=== PATIENT | female | born 1950 | race Hispanic/Latino ===

== ENCOUNTER 2023-01-04 16:42 | Inpatient (IN) | payer MEDICARE ==
[~2023-01-04] VITALS: Ht 165.1 cm; Wt 70.3 kg
[2023-01-04] MEDS ORDERED: Morphine 4mg INJECTION 4 MG/ML INJ IV PRN ×2 (17:30→19:30)
[2023-01-04] MEDS ORDERED: SODIUM CHLORIDE 0.9% 1000ML 1,000 ML IV ONE (17:30)
[2023-01-04] MEDS ORDERED: ONDANSETRON HCL INJ 2MG/ML 2ML 2 MG/ML VIAL IV PRN ×2 (17:30→19:30)
[2023-01-04 17:34] LABS: BASOPHILS % 0.4 % (0.0-1.0); EOSINOPHILS # (AUTO) 0.3 (0.0-0.4); EOSINOPHILS % 3.5 % (0.0-6.0); HEMATOCRIT 38.4 % (34.2-44.1); LYMPHOCYTES # (AUTO) 2.3 (1.0-3.2); LYMPHOCYTES % 30.6 % (18.0-39.1); MEAN CORPUSCULAR HGB CONC 33.9 g/dL (31-35); MEAN CORPUSCULAR VOLUME 91.6 fL (81-99); MONOCYTES # (AUTO) 0.9 (0.2-0.8); MONOCYTES % 11.8 % (4.4-11.3); NEUTROPHILS % 53.3 % (38.7-80.0); PLATELET COUNT 248 x10e3/uL (140-360); RED BLOOD COUNT 4.19 x10e6/uL (3.6-5.1); RED CELL DISTRIBUTION WIDTH 12.2 % (11.7-14.4)
[2023-01-04 17:46] LABS: ALANINE AMINOTRANSFERASE 72 IU/L (0-55); ALBUMIN 3.5 g/dL (3.5-5.0); ALBUMIN/GLOBULIN RATIO 0.6 (0.8-2.0); ALKALINE PHOSPHATASE 229 IU/L (40-150); ANION GAP 14.8 mmol/L (8-16); BLOOD UREA NITROGEN 19 mg/dL (7-26); BUN/CREATININE RATIO 18 (6-25); CALCIUM 9.6 mg/dL (8.4-10.2); CARBON DIOXIDE 24 mmol/L (22-29); CHLORIDE 101 mmol/L (98-107); CREATININE, SERUM 1.08 mg/dL (0.57-1.11); GLUCOSE 97 mg/dL (74-118); LIPASE 279 U/L (8-78); POTASSIUM 3.8 mmol/L (3.5-5.1); SODIUM 136 mmol/L (136-145)
[2023-01-04 18:04] LABS: CLARITY,URINE SL CLOUDY (CLEAR); COLOR,URINE YELLOW (YELLOW); KETONES,URINE NEGATIVE (NEGATIVE); LEUKOCYTE ESTERASE ,URINE 1+ (NEGATIVE); NITRITE,URINE NEGATIVE (NEGATIVE); PROTEIN,URINE DIPSTICK 1+ (NEGATIVE); URINE UROBILINOGEN 0.2 mg/dL (0.2 - 1)
[2023-01-04] MEDS ORDERED: IOPAMIDOL 370 MG/ML 100 ML INFUS..BTL INJ ONE (18:15)
[2023-01-04 18:24] LABS: BACTERIA,URINE MANY /HPF; EPITHELIAL CELLS,URINE FEW /LPF; TRANSITIONAL EPI CELLS,URINE MODERATE
[2023-01-04] MEDS ORDERED: METHYLPREDNISOLONE SOD SUCC 125 MG/2ML VIAL IV ONE (19:30)
[2023-01-04] MEDS: SODIUM CHLORIDE 0.9% 1000ML 1,000 ML IV SCH ×2 (19:42→22:24)
[2023-01-04 20:30] VITALS: BP 175/89; PULSE 63; RESP 18; TEMP 97.9; O2SAT 98
[2023-01-04] MEDS ORDERED: ZESTRIL2.5 MG PO (22:48)
[2023-01-04] MEDS ORDERED: ULTRAM 50MG50 MG PO (22:48)
[2023-01-04] MEDS ORDERED: BYSTOLIC10 MG PO (22:48)
[2023-01-04] MEDS ORDERED: ACETAMINOPHEN 325 MG TAB PO PRN (23:00)
[2023-01-04] MEDS ORDERED: POLYETHYLENE GLYCOL 3350 17 GM PACK PO PRN (23:00)
[2023-01-04] MEDS ORDERED: NALOXONE HCL INJ 0.4 MG/ML AMP IV PRN (23:00)
[2023-01-04] MEDS ORDERED: LACTATED RINGER'S 1,000 ML INJ ONE (23:15)
[2023-01-04 23:53] VITALS: BP 156/84; PULSE 71; RESP 16; TEMP 98.2; O2SAT 99
[2023-01-05] VITALS (9 sets, daily range): BP systolic 136–168; BP diastolic 82–102; PULSE 52–81; RESP 14–19; TEMP 97.4–99.3; O2SAT 95–100
[2023-01-05] MEDS: TRAMADOL HCL 50 MG TAB PO PRN (00:21)
[2023-01-05] MEDS: FAMOTIDINE 20 MG/2 ML VIAL IV SCH ×2 (00:21→17:20)
[2023-01-05 07:18] LABS: BASOPHILS % 0.2 % (0.0-1.0); HEMATOCRIT 39.5 % (34.2-44.1); HEMOGLOBIN 13.5 g/dL (12.0-16.0); LYMPHOCYTES # (AUTO) 1.3 (1.0-3.2); MEAN CORPUSCULAR HGB CONC 34.2 g/dL (31-35); MEAN CORPUSCULAR VOLUME 90.8 fL (81-99); MONOCYTES # (AUTO) 0.1 (0.2-0.8); MONOCYTES % 1.1 % (4.4-11.3); NEUTROPHILS # (AUTO) 3.2 (2.1-6.9); NEUTROPHILS % 70.5 % (38.7-80.0); PLATELET COUNT 251 x10e3/uL (140-360); RED BLOOD COUNT 4.35 x10e6/uL (3.6-5.1); RED CELL DISTRIBUTION WIDTH 11.9 % (11.7-14.4)
[2023-01-05 07:35] LABS: CALCIUM 9.2 mg/dL (8.4-10.2); CREATININE, SERUM 0.85 mg/dL (0.57-1.11)
[2023-01-05 08:25] LABS: CHOL/HDL RATIO 8.6 (3.0-3.6); MAGNESIUM 1.9 MG/DL (1.3-2.1)
[2023-01-05 08:45] LABS: THYROID STIMULATING HORMONE 0.97 uIU/mL (0.350-4.940)
[2023-01-05] MEDS: NEBIVOLOL 10 MG TAB PO SCH (09:41)
[2023-01-05] MEDS: DOCUSATE SODIUM 100 MG CAP PO SCH ×2 (09:41→17:20)
[2023-01-05] MEDS: LISINOPRIL 2.5 MG TAB PO SCH (09:42)
[2023-01-05] MEDS ORDERED: HYDROCODONE/APAP 5MG-325MG TAB PO PRN (21:00)
[2023-01-05] MEDS: HYDROMORPHONE 1MG/1ML INJ IV PRN (22:06)
[2023-01-05] MEDS: HYDRALAZINE HCL 20 MG/ML VIAL IV PRN (22:09)
[2023-01-06] VITALS (10 sets, daily range): BP systolic 145–176; BP diastolic 69–93; PULSE 50–73; RESP 17–20; TEMP 97.5–98.4; O2SAT 97–100
[2023-01-06] MEDS: DOCUSATE SODIUM 100 MG CAP PO SCH ×2 (09:00→17:12)
[2023-01-06] MEDS: LISINOPRIL 2.5 MG TAB PO SCH (09:28)
[2023-01-06] MEDS: NEBIVOLOL 10 MG TAB PO SCH (09:33)
[2023-01-06] MEDS: HYDROMORPHONE 1MG/1ML INJ IV PRN ×2 (14:01→20:07)
[2023-01-06] MEDS: HYDRALAZINE HCL 20 MG/ML VIAL IV PRN (17:16)
[2023-01-07] VITALS (8 sets, daily range): BP systolic 145–161; BP diastolic 74–99; PULSE 55–88; RESP 17–19; TEMP 97.8–98.8; O2SAT 96–100
[2023-01-07] MEDS: TRAMADOL HCL 50 MG TAB PO PRN (00:55)
[2023-01-07 06:26] LABS: INR 1.13; PARTIAL THROMBOPLASTIN TIME 30.5 seconds (23.8-35.5)
[2023-01-07 07:23] LABS: BASOPHILS % 0.2 % (0.0-1.0); EOSINOPHILS # (AUTO) 0.2 (0.0-0.4); EOSINOPHILS % 1.9 % (0.0-6.0); HEMATOCRIT 38.1 % (34.2-44.1); LYMPHOCYTES # (AUTO) 1.9 (1.0-3.2); LYMPHOCYTES % 20.8 % (18.0-39.1); MEAN CORPUSCULAR HGB CONC 34.1 g/dL (31-35); MEAN CORPUSCULAR VOLUME 90.7 fL (81-99); MONOCYTES # (AUTO) 0.8 (0.2-0.8); MONOCYTES % 9.3 % (4.4-11.3); NEUTROPHILS % 67.4 % (38.7-80.0); PLATELET COUNT 251 x10e3/uL (140-360); RED CELL DISTRIBUTION WIDTH 12.2 % (11.7-14.4)
[2023-01-07 07:35] LABS: ANION GAP 13.5 mmol/L (8-16); CALCIUM 8.9 mg/dL (8.4-10.2); CREATININE, SERUM 0.89 mg/dL (0.57-1.11); POTASSIUM 3.5 mmol/L (3.5-5.1)
[2023-01-07] MEDS: NEBIVOLOL 10 MG TAB PO SCH (08:26)
[2023-01-07] MEDS: LISINOPRIL 2.5 MG TAB PO SCH (08:27)
[2023-01-07] MEDS: DOCUSATE SODIUM 100 MG CAP PO SCH ×2 (08:27→17:25)
[2023-01-07] MEDS ORDERED: SODIUM CHLORIDE 0.9% 250ML 250 ML ONE (09:58)
[2023-01-07] MEDS ORDERED: MIDAZOLAM HCL 2 MG/2 ML VIAL ONE (09:58)
[2023-01-07] MEDS ORDERED: FENTANYL CITRATE/PF 100MCG/2 ML INJ ONE (09:58)
[2023-01-07] MEDS ORDERED: LIDOCAINE HCL 1% LOCAL INJ 20 ML VIAL ONE (10:14)
[2023-01-07] MEDS: HYDROMORPHONE 1MG/1ML INJ IV PRN (13:10)
[2023-01-08] VITALS: BP 141/94; PULSE 107; RESP 18; TEMP 98.3; O2SAT 95
[2023-01-08] MEDS: TRAMADOL HCL 50 MG TAB PO PRN ×2 (00:12→06:18)
[2023-01-08 04:00] VITALS: BP 142/88; PULSE 65; RESP 17; TEMP 97.8; O2SAT 96
[2023-01-08 06:58] VITALS: PULSE 68; RESP 17; O2SAT 97
[2023-01-08 07:14] LABS: BASOPHILS # (AUTO) 0.1 (0.0-0.1); BASOPHILS % 0.7 % (0.0-1.0); EOSINOPHILS # (AUTO) 0.2 (0.0-0.4); EOSINOPHILS % 3.5 % (0.0-6.0); HEMATOCRIT 40.7 % (34.2-44.1); HEMOGLOBIN 13.1 g/dL (12.0-16.0); LYMPHOCYTES # (AUTO) 1.5 (1.0-3.2); LYMPHOCYTES % 21.7 % (18.0-39.1); MEAN CORPUSCULAR HEMOGLOBIN 31.5 pg (28-32); MEAN CORPUSCULAR HGB CONC 32.2 g/dL (31-35); MEAN CORPUSCULAR VOLUME 97.8 fL (81-99); MONOCYTES # (AUTO) 0.7 (0.2-0.8); MONOCYTES % 10.4 % (4.4-11.3); NEUTROPHILS # (AUTO) 4.3 (2.1-6.9); NEUTROPHILS % 63.4 % (38.7-80.0); PLATELET COUNT 209 x10e3/uL (140-360); RED BLOOD COUNT 4.16 x10e6/uL (3.6-5.1); RED CELL DISTRIBUTION WIDTH 12.6 % (11.7-14.4)
[2023-01-08 07:18] LABS: ANION GAP 11.4 mmol/L (8-16); CALCIUM 8.9 mg/dL (8.4-10.2); CREATININE, SERUM 1.08 mg/dL (0.57-1.11); POTASSIUM 3.4 mmol/L (3.5-5.1)
[2023-01-08 08:00] VITALS: BP 139/92; PULSE 70; RESP 18; TEMP 98.6; O2SAT 98
[2023-01-08] MEDS: LISINOPRIL 2.5 MG TAB PO SCH (08:33)
[2023-01-08] MEDS: DOCUSATE SODIUM 100 MG CAP PO SCH (08:33)
[2023-01-08] MEDS: NEBIVOLOL 10 MG TAB PO SCH (08:34)
[2023-01-08 09:00] VITALS: BP 142/88; PULSE 70; RESP 18; TEMP 98.6; O2SAT 98
[2023-01-08] MEDS ORDERED: ACETAMINOPHEN325 M1 PO (11:31)
[2023-01-08] MEDS ORDERED: ONDANSETRON ODT4 MG PO (11:31)
[2023-01-08] MEDS ORDERED: Docusate Sodium PO (11:31)
[2023-01-08 12:00] VITALS: BP 136/86; PULSE 67; RESP 17; TEMP 97.8; O2SAT 98
[2023-01-08] MEDS ORDERED: ONDANSETRON HCL 4 MG ORAL DISINTEGRATING TAB PO PRN (12:15)
[2023-01-08] MEDS ORDERED: POTASSIUM CHLORIDE 20 MEQ TAB CR PO ONE (12:40)
[2023-01-08] MEDS ORDERED: PANTOPRAZOLE SOD 40 MG TABEC PO SCH (21:00)
[2023-01-14 12:00] VITALS: PULSE 72; RESP 17; O2SAT 98
== END 2023-01-08 12:50 | disposition home or self-care (01) | DRG 825 ==
LOC: ER 16:47 → ERHOLD 19:21 → MED/SURG3 20:36
PROVIDERS: ADMIT Internal Medicine; ATTEND Internal Medicine
PROC: 07BC3ZX Excision of Pelvis Lymphatic, Percutaneous Approach, Diagnostic (ICD-10-PCS; principal; 2023-01-07)
DX: C77.2 Secondary and unspecified malignant neoplasm of intra-abdominal lymph nodes (principal); C80.1 Malignant (primary) neoplasm, unspecified; D37.8 Neoplasm of uncertain behavior of other specified digestive organs; K80.20 Calculus of gallbladder without cholecystitis without obstruction; K57.30 Diverticulosis of large intestine without perforation or abscess without bleeding; I10 Essential (primary) hypertension; E87.6 Hypokalemia; E86.0 Dehydration
CPT/HCPCS: 0223U; 36415; 38505; 74177; 74470; 77012; 80048; 80053; 80061; 81001; 82378; 83036; 83690; 83735; 84100; 84443; 84484; 85025; 85610; 85730; 86301; 87086; 88304; 88305; 88333; 88342; 93005; 94799; 99152; 99153; 99284; J0696; J1170; J2001; J2250; J2270; J2405; J2930; J7030; J7050; Q9967

== ENCOUNTER 2023-02-22 14:38 | Inpatient (IN) | payer OTHER, MEDICARE ==
[~2023-02-22] VITALS: Ht 154.9 cm; Wt 75.0 kg
[2023-02-22] VITALS (11 sets, daily range): BP systolic 107–124; BP diastolic 61–80; PULSE 74–94; RESP 16–19; TEMP 98–98.7; O2SAT 95–99
[~2023-02-22 14:38] MED LIST: ACETAMINOPHEN325 M1 PO; BYSTOLIC10 MG PO; Docusate Sodium PO; ONDANSETRON ODT4 MG PO; ULTRAM 50MG50 MG PO; ZESTRIL2.5 MG PO
[2023-02-22] MEDS ORDERED: SODIUM CHLORIDE 0.9% 1000ML 1,000 ML IV STA ×2 (14:59→15:43)
[2023-02-22 15:18] LABS: BASOPHILS % 0.1 % (0.0-1.0); EOSINOPHILS # (AUTO) 0.1 (0.0-0.4); EOSINOPHILS % 0.3 % (0.0-6.0); HEMATOCRIT 30.3 % (34.2-44.1); HEMOGLOBIN 10.9 g/dL (12.0-16.0); LYMPHOCYTES # (AUTO) 0.6 (1.0-3.2); LYMPHOCYTES % 2.6 % (18.0-39.1); MEAN CORPUSCULAR HEMOGLOBIN 30.8 pg (28-32); MEAN CORPUSCULAR VOLUME 85.6 fL (81-99); MONOCYTES # (AUTO) 0.8 (0.2-0.8); MONOCYTES % 3.7 % (4.4-11.3); NEUTROPHILS # (AUTO) 19.6 (2.1-6.9); NEUTROPHILS % 92.1 % (38.7-80.0); PLATELET COUNT 392 x10e3/uL (140-360); RED BLOOD COUNT 3.54 x10e6/uL (3.6-5.1); RED CELL DISTRIBUTION WIDTH 18.3 % (11.7-14.4)
[2023-02-22 15:23] LABS: INR 1.59; PROTHROMBIN TIME 19.5 seconds (11.9-14.5)
[2023-02-22 15:24] LABS: PARTIAL THROMBOPLASTIN TIME 36.2 seconds (23.8-35.5)
[2023-02-22 15:35] LABS: ALANINE AMINOTRANSFERASE 103 IU/L (0-55); ALBUMIN 1.9 g/dL (3.5-5.0); ALBUMIN/GLOBULIN RATIO 0.3 (0.8-2.0); ALKALINE PHOSPHATASE 976 IU/L (40-150); ANION GAP 20.3 mmol/L (8-16); BLOOD UREA NITROGEN 27 mg/dL (7-26); BUN/CREATININE RATIO 16 (6-25); CALCIUM 8.8 mg/dL (8.4-10.2); CARBON DIOXIDE 27 mmol/L (22-29); CHLORIDE 82 mmol/L (98-107); CREATINE KINASE 96 IU/L (29-168); CREATININE, SERUM 1.68 mg/dL (0.57-1.11); GLUCOSE 113 mg/dL (74-118); LIPASE 33 U/L (8-78); MAGNESIUM 1.7 MG/DL (1.3-2.1); POTASSIUM 3.3 mmol/L (3.5-5.1); SODIUM 126 mmol/L (136-145)
[2023-02-22 15:42] LABS: B-TYPE NATRIURETIC PEPTIDE2 116.6 pg/mL (0-100)
[2023-02-22 16:42] LABS: BAND NEUTROPHILS % (MANUAL) 5 %; LYMPHOCYTES % (MANUAL) 3 % (19-48); NEUTROPHILS % (MANUAL) 92 % (40-74)
[2023-02-22 16:44] LABS: PLATELET ESTIMATE ADEQUATE; PLATELET MORPHOLOGY COMMENT NORMAL; POIKILOCYTOSIS SLIGHT; RBC MORPHOLOGY COMMENT NORMAL; TARGET CELLS FEW
[2023-02-22] MEDS ORDERED: SODIUM CHLORIDE 0.9% 1000ML 1,000 ML IV ONE (17:00)
[2023-02-22 17:12] LABS: CLARITY,URINE CLEAR (CLEAR); COLOR,URINE AMBER (YELLOW); LEUKOCYTE ESTERASE ,URINE NEGATIVE (NEGATIVE); NITRITE,URINE NEGATIVE (NEGATIVE)
[2023-02-22 17:13] LABS: KETONES,URINE 1+ (NEGATIVE); PROTEIN,URINE DIPSTICK 2+ (NEGATIVE)
[2023-02-22] MEDS ORDERED: Vancomycin IV 1 GM in SODIUM CHLORIDE 0.9% 250ML 250 ML IV ONE (17:15)
[2023-02-22 17:19] LABS: BACTERIA,URINE MODERATE /HPF
[2023-02-22 17:20] LABS: EPITHELIAL CELLS,URINE FEW /LPF
[2023-02-22] MEDS: HYDROCODONE/APAP 5MG-325MG TAB PO PRN (20:17)
[2023-02-23] VITALS (26 sets, daily range): BP systolic 100–121; BP diastolic 51–92; PULSE 68–97; RESP 14–25; TEMP 97.1–98.7; O2SAT 92–100
[2023-02-23] MEDS: HYDROCODONE/APAP 5MG-325MG TAB PO PRN ×2 (02:59→20:13)
[2023-02-23 06:59] LABS: INR 1.62; PARTIAL THROMBOPLASTIN TIME 39.9 seconds (23.8-35.5); PROTHROMBIN TIME 19.7 seconds (11.9-14.5)
[2023-02-23 07:03] LABS: BASOPHILS % 0.1 % (0.0-1.0); EOSINOPHILS % 0.4 % (0.0-6.0); HEMATOCRIT 27.3 % (34.2-44.1); HEMOGLOBIN 9.7 g/dL (12.0-16.0); LYMPHOCYTES # (AUTO) 0.2 (1.0-3.2); LYMPHOCYTES % 2.5 % (18.0-39.1); MEAN CORPUSCULAR HGB CONC 35.5 g/dL (31-35); MEAN CORPUSCULAR VOLUME 87.2 fL (81-99); MONOCYTES # (AUTO) 0.1 (0.2-0.8); NEUTROPHILS # (AUTO) 7.4 (2.1-6.9); NEUTROPHILS % 95.6 % (38.7-80.0); PLATELET COUNT 319 x10e3/uL (140-360); RED BLOOD COUNT 3.13 x10e6/uL (3.6-5.1); RED CELL DISTRIBUTION WIDTH 18.9 % (11.7-14.4)
[2023-02-23 07:11] LABS: ALBUMIN 1.6 g/dL (3.5-5.0); ALBUMIN/GLOBULIN RATIO 0.4 (0.8-2.0); ANION GAP 16.8 mmol/L (8-16); CALCIUM 7.9 mg/dL (8.4-10.2); CREATININE, SERUM 1.43 mg/dL (0.57-1.11)
[2023-02-23 07:36] LABS: POTASSIUM 2.8 mmol/L (3.5-5.1)
[2023-02-23] MEDS ORDERED: POTASSIUM CHLORIDE 20 MEQ TAB CR PO STA (08:17)
[2023-02-23] MEDS: KCL 20MEQ/.9 SOD CHL 1,000 ML IV SCH (15:28)
[2023-02-23] MEDS ORDERED: DOCUSATE SODIUM 100 MG CAP PO PRN (17:00)
[2023-02-23] MEDS ORDERED: ZOLPIDEM TARTRATE 5 MG TAB PO PRN (17:00)
[2023-02-23] MEDS ORDERED: DIPHENHYDRAMINE HCL INJ 50 MG/ML VIAL IV PRN (17:00)
[2023-02-23] MEDS ORDERED: HYDROCODONE/APAP 5MG-325MG TAB PO PRN (17:00)
[2023-02-23] MEDS ORDERED: POTASSIUM CHLORIDE 20 MEQ TAB CR PO PRN (17:00)
[2023-02-23] MEDS ORDERED: ONDANSETRON HCL INJ 2MG/ML 2ML 2 MG/ML VIAL IV PRN (17:00)
[2023-02-24] VITALS (17 sets, daily range): BP systolic 100–138; BP diastolic 60–81; PULSE 71–90; RESP 12–26; TEMP 97.6–98.3; O2SAT 95–100
[2023-02-24] MEDS: HYDROCODONE/APAP 5MG-325MG TAB PO PRN ×2 (03:52→20:31)
[2023-02-24 06:42] LABS: BASOPHILS # (AUTO) 0.1 (0.0-0.1); BASOPHILS % 0.4 % (0.0-1.0); EOSINOPHILS # (AUTO) 0.1 (0.0-0.4); EOSINOPHILS % 0.4 % (0.0-6.0); HEMATOCRIT 27.2 % (34.2-44.1); HEMOGLOBIN 9.4 g/dL (12.0-16.0); LYMPHOCYTES % 8.3 % (18.0-39.1); MEAN CORPUSCULAR HEMOGLOBIN 30.4 pg (28-32); MEAN CORPUSCULAR HGB CONC 34.6 g/dL (31-35); MONOCYTES # (AUTO) 0.8 (0.2-0.8); MONOCYTES % 6.7 % (4.4-11.3); NEUTROPHILS # (AUTO) 10.3 (2.1-6.9); NEUTROPHILS % 83.1 % (38.7-80.0); PLATELET COUNT 302 x10e3/uL (140-360); RED BLOOD COUNT 3.09 x10e6/uL (3.6-5.1); RED CELL DISTRIBUTION WIDTH 19.2 % (11.7-14.4)
[2023-02-24 07:09] LABS: ALBUMIN 1.5 g/dL (3.5-5.0); ALBUMIN/GLOBULIN RATIO 0.3 (0.8-2.0); ANION GAP 14.2 mmol/L (8-16); CALCIUM 7.8 mg/dL (8.4-10.2); CREATININE, SERUM 1.65 mg/dL (0.57-1.11); POTASSIUM 3.2 mmol/L (3.5-5.1)
[2023-02-24] MEDS ORDERED: MAGNESIUM HYDROXIDE 30 ML UDC PO ONE (09:30)
[2023-02-24] MEDS: KCL 20MEQ/.9 SOD CHL 1,000 ML IV SCH (10:09)
[2023-02-24] MEDS ORDERED: SODIUM CHLORIDE 452MG TAB PO ONE (12:30)
[2023-02-24] MEDS: ONDANSETRON HCL INJ 2MG/ML 2ML 2 MG/ML VIAL IV PRN (13:02)
[2023-02-24 22:28] LABS: % IRON SATURATION 25 % (15-50); IRON 37 ug/dL (50-170); TOTAL IRON BINDING CAPACITY 147 ug/dL (261-478); TRANSFERRIN 105 mg/dL (180-382)
[2023-02-25] VITALS (7 sets, daily range): BP systolic 108–132; BP diastolic 68–83; PULSE 82–93; RESP 17–22; TEMP 97.5–98.2; O2SAT 95–98
[2023-02-25] MEDS: HYDROCODONE/APAP 5MG-325MG TAB PO PRN ×3 (04:23→14:08)
[2023-02-25 05:38] LABS: BASOPHILS % 0.2 % (0.0-1.0); EOSINOPHILS % 0.1 % (0.0-6.0); HEMATOCRIT 27.8 % (34.2-44.1); HEMOGLOBIN 9.8 g/dL (12.0-16.0); LYMPHOCYTES # (AUTO) 1.1 (1.0-3.2); LYMPHOCYTES % 8.8 % (18.0-39.1); MEAN CORPUSCULAR HEMOGLOBIN 30.9 pg (28-32); MEAN CORPUSCULAR HGB CONC 35.3 g/dL (31-35); MEAN CORPUSCULAR VOLUME 87.7 fL (81-99); MONOCYTES % 7.6 % (4.4-11.3); NEUTROPHILS # (AUTO) 10.4 (2.1-6.9); NEUTROPHILS % 81.6 % (38.7-80.0); PLATELET COUNT 335 x10e3/uL (140-360); RED BLOOD COUNT 3.17 x10e6/uL (3.6-5.1); RED CELL DISTRIBUTION WIDTH 19.5 % (11.7-14.4)
[2023-02-25 06:56] LABS: ALBUMIN 1.5 g/dL (3.5-5.0); ALBUMIN/GLOBULIN RATIO 0.4 (0.8-2.0); ANION GAP 13.9 mmol/L (8-16); CALCIUM 7.8 mg/dL (8.4-10.2); CREATININE, SERUM 1.49 mg/dL (0.57-1.11); POTASSIUM 3.9 mmol/L (3.5-5.1)
[2023-02-25] MEDS: KCL 20MEQ/.9 SOD CHL 1,000 ML IV SCH (09:24)
[2023-02-25] MEDS: IRON SUCROSE 100 MG in SODIUM CHLORIDE 0.9% 100 ML IV SCH (09:24)
[2023-02-25] MEDS: CEFTRIAXONE 2 GM in SODIUM CHLORIDE 0.9% 100 ML IV SCH (14:05)
[2023-02-25] MEDS: ONDANSETRON HCL INJ 2MG/ML 2ML 2 MG/ML VIAL IV PRN (22:48)
[2023-02-25] MEDS: Morphine 2mg Syringe 2 MG/ML SYR IV PRN (22:48)
[2023-02-26] VITALS (9 sets, daily range): BP systolic 103–132; BP diastolic 64–83; PULSE 87–111; RESP 16–23; TEMP 97.7–98.4; O2SAT 95–100
[2023-02-26] MEDS: KCL 20MEQ/.9 SOD CHL 1,000 ML IV SCH (04:00)
[2023-02-26] MEDS: Morphine 2mg Syringe 2 MG/ML SYR IV PRN (04:20)
[2023-02-26] MEDS: ONDANSETRON HCL INJ 2MG/ML 2ML 2 MG/ML VIAL IV PRN (04:20)
[2023-02-26 09:11] LABS: ALBUMIN 1.5 g/dL (3.5-5.0); ALBUMIN/GLOBULIN RATIO 0.3 (0.8-2.0); ANION GAP 13.3 mmol/L (8-16); CALCIUM 8.6 mg/dL (8.4-10.2); CREATININE, SERUM 1.49 mg/dL (0.57-1.11); POTASSIUM 4.3 mmol/L (3.5-5.1)
[2023-02-26] MEDS: IRON SUCROSE 100 MG in SODIUM CHLORIDE 0.9% 100 ML IV SCH (09:52)
[2023-02-26] MEDS: FENTANYL 25 MCG/HR PATCH TOP SCH (11:30)
[2023-02-26] MEDS: CEFTRIAXONE 2 GM in SODIUM CHLORIDE 0.9% 100 ML IV SCH (13:38)
[2023-02-26] MEDS: HYDROCODONE/APAP 5MG-325MG TAB PO PRN (22:28)
[2023-02-27] VITALS (8 sets, daily range): BP systolic 110–129; BP diastolic 62–99; PULSE 84–95; RESP 16–19; TEMP 97.5–98; O2SAT 97–100
[2023-02-27] MEDS: HYDROCODONE/APAP 5MG-325MG TAB PO PRN ×4 (03:04→20:03)
[2023-02-27 05:50] LABS: BASOPHILS % 0.4 % (0.0-1.0); EOSINOPHILS # (AUTO) 0.3 (0.0-0.4); EOSINOPHILS % 2.5 % (0.0-6.0); HEMATOCRIT 26.8 % (34.2-44.1); HEMOGLOBIN 9.4 g/dL (12.0-16.0); LYMPHOCYTES # (AUTO) 1.1 (1.0-3.2); LYMPHOCYTES % 10.6 % (18.0-39.1); MEAN CORPUSCULAR HEMOGLOBIN 30.5 pg (28-32); MEAN CORPUSCULAR HGB CONC 35.1 g/dL (31-35); MONOCYTES # (AUTO) 0.7 (0.2-0.8); MONOCYTES % 6.1 % (4.4-11.3); NEUTROPHILS # (AUTO) 8.3 (2.1-6.9); NEUTROPHILS % 77.8 % (38.7-80.0); PLATELET COUNT 362 x10e3/uL (140-360); RED BLOOD COUNT 3.08 x10e6/uL (3.6-5.1)
[2023-02-27 06:23] LABS: ANION GAP 12.2 mmol/L (8-16); CALCIUM 8.2 mg/dL (8.4-10.2); CREATININE, SERUM 1.64 mg/dL (0.57-1.11); POTASSIUM 4.2 mmol/L (3.5-5.1)
[2023-02-27] MEDS: IRON SUCROSE 100 MG in SODIUM CHLORIDE 0.9% 100 ML IV SCH (09:34)
[2023-02-27] MEDS: CEFTRIAXONE 2 GM in SODIUM CHLORIDE 0.9% 100 ML IV SCH (14:40)
[2023-02-28] VITALS: BP 135/86; PULSE 95; RESP 17; TEMP 97.8; O2SAT 97
[2023-02-28 04:00] VITALS: BP 127/86; PULSE 101; RESP 17; TEMP 98; O2SAT 98
[2023-02-28 06:25] LABS: BASOPHILS # (AUTO) 0.1 (0.0-0.1); BASOPHILS % 0.4 % (0.0-1.0); EOSINOPHILS % 0.2 % (0.0-6.0); HEMATOCRIT 29.2 % (34.2-44.1); HEMOGLOBIN 10.1 g/dL (12.0-16.0); LYMPHOCYTES # (AUTO) 1.2 (1.0-3.2); LYMPHOCYTES % 9.9 % (18.0-39.1); MEAN CORPUSCULAR HEMOGLOBIN 30.6 pg (28-32); MEAN CORPUSCULAR HGB CONC 34.6 g/dL (31-35); MEAN CORPUSCULAR VOLUME 88.5 fL (81-99); MONOCYTES # (AUTO) 0.7 (0.2-0.8); MONOCYTES % 5.7 % (4.4-11.3); NEUTROPHILS # (AUTO) 9.8 (2.1-6.9); PLATELET COUNT 411 x10e3/uL (140-360); RED CELL DISTRIBUTION WIDTH 20.7 % (11.7-14.4)
[2023-02-28 06:54] LABS: ALBUMIN 1.4 g/dL (3.5-5.0); ALBUMIN/GLOBULIN RATIO 0.3 (0.8-2.0); ANION GAP 15.5 mmol/L (8-16); CALCIUM 8.6 mg/dL (8.4-10.2); CREATININE, SERUM 1.72 mg/dL (0.57-1.11); POTASSIUM 4.5 mmol/L (3.5-5.1)
[2023-02-28 08:39] VITALS: BP 119/83; PULSE 95; RESP 18; TEMP 97.9; O2SAT 97
[2023-02-28 12:25] VITALS: BP 114/69; PULSE 95; RESP 19; TEMP 97; O2SAT 98
[2023-02-28] MEDS: CEFTRIAXONE 2 GM in SODIUM CHLORIDE 0.9% 100 ML IV SCH (14:01)
[2023-02-28] MEDS: IRON SUCROSE 100 MG in SODIUM CHLORIDE 0.9% 100 ML IV SCH (14:01)
[2023-02-28 15:00] VITALS: BP 118/76; PULSE 93; RESP 19; TEMP 98.1; O2SAT 95
[2023-02-28] MEDS: HYDROCODONE/APAP 5MG-325MG TAB PO PRN ×2 (19:40→23:44)
[2023-02-28 20:00] VITALS: BP 136/74; PULSE 94; RESP 17; TEMP 98.1; O2SAT 98
[2023-03-01] VITALS: BP 122/76; PULSE 89; RESP 17; TEMP 97.8; O2SAT 100
[2023-03-01 04:00] VITALS: BP 128/67; PULSE 93; RESP 17; TEMP 97.5; O2SAT 100
[2023-03-01 05:42] LABS: BASOPHILS # (AUTO) 0.1 (0.0-0.1); BASOPHILS % 0.6 % (0.0-1.0); EOSINOPHILS % 0.4 % (0.0-6.0); HEMATOCRIT 29.1 % (34.2-44.1); HEMOGLOBIN 10.1 g/dL (12.0-16.0); LYMPHOCYTES # (AUTO) 1.2 (1.0-3.2); LYMPHOCYTES % 10.7 % (18.0-39.1); MEAN CORPUSCULAR HEMOGLOBIN 30.8 pg (28-32); MEAN CORPUSCULAR HGB CONC 34.7 g/dL (31-35); MEAN CORPUSCULAR VOLUME 88.7 fL (81-99); MONOCYTES # (AUTO) 0.7 (0.2-0.8); MONOCYTES % 6.7 % (4.4-11.3); NEUTROPHILS # (AUTO) 8.4 (2.1-6.9); NEUTROPHILS % 77.7 % (38.7-80.0); PLATELET COUNT 419 x10e3/uL (140-360); RED BLOOD COUNT 3.28 x10e6/uL (3.6-5.1); RED CELL DISTRIBUTION WIDTH 21.1 % (11.7-14.4)
[2023-03-01 06:17] LABS: ANION GAP 15.5 mmol/L (8-16); CALCIUM 8.4 mg/dL (8.4-10.2); CREATININE, SERUM 2.01 mg/dL (0.57-1.11); POTASSIUM 4.5 mmol/L (3.5-5.1)
[2023-03-01 08:00] VITALS: BP 112/69; PULSE 86; RESP 17; TEMP 97.7; O2SAT 98
[2023-03-01] MEDS: IRON SUCROSE 100 MG in SODIUM CHLORIDE 0.9% 100 ML IV SCH (09:00)
[2023-03-01 09:02] LABS: INR 2.65; PROTHROMBIN TIME 28.7 seconds (11.9-14.5)
[2023-03-01] MEDS: FENTANYL 25 MCG/HR PATCH TOP SCH (10:04)
[2023-03-01] MEDS: CEFTRIAXONE 2 GM in SODIUM CHLORIDE 0.9% 100 ML IV SCH (15:07)
[2023-03-01 15:44] VITALS: BP 125/69; PULSE 98; RESP 18; TEMP 97.7; O2SAT 98
[2023-03-01 20:25] VITALS: BP 121/54; PULSE 95; RESP 18; TEMP 98.1; O2SAT 100
[2023-03-01 21:00] VITALS: BP 121/54; PULSE 95; RESP 18; TEMP 98.1; O2SAT 100
[2023-03-01] MEDS: HYDROCODONE/APAP 5MG-325MG TAB PO PRN (22:08)
[2023-03-02] VITALS (7 sets, daily range): BP systolic 98–116; BP diastolic 53–79; PULSE 84–99; RESP 16–21; TEMP 97.4–98.1; O2SAT 98–100
[2023-03-02] MEDS: HYDROCODONE/APAP 5MG-325MG TAB PO PRN ×3 (02:37→17:16)
[2023-03-02 07:23] LABS: BASOPHILS # (AUTO) 0.1 (0.0-0.1); BASOPHILS % 0.7 % (0.0-1.0); EOSINOPHILS # (AUTO) 0.1 (0.0-0.4); EOSINOPHILS % 0.4 % (0.0-6.0); HEMATOCRIT 30.4 % (34.2-44.1); HEMOGLOBIN 10.1 g/dL (12.0-16.0); LYMPHOCYTES # (AUTO) 1.2 (1.0-3.2); LYMPHOCYTES % 10.1 % (18.0-39.1); MEAN CORPUSCULAR HEMOGLOBIN 30.8 pg (28-32); MEAN CORPUSCULAR HGB CONC 33.2 g/dL (31-35); MEAN CORPUSCULAR VOLUME 92.7 fL (81-99); MONOCYTES # (AUTO) 0.6 (0.2-0.8); MONOCYTES % 5.4 % (4.4-11.3); NEUTROPHILS # (AUTO) 9.2 (2.1-6.9); NEUTROPHILS % 79.8 % (38.7-80.0); PLATELET COUNT 450 x10e3/uL (140-360); RED BLOOD COUNT 3.28 x10e6/uL (3.6-5.1); RED CELL DISTRIBUTION WIDTH 21.7 % (11.7-14.4)
[2023-03-02 07:37] LABS: INR 3.14; PROTHROMBIN TIME 32.6 seconds (11.9-14.5)
[2023-03-02 07:43] LABS: ALBUMIN 1.4 g/dL (3.5-5.0); ALBUMIN/GLOBULIN RATIO 0.3 (0.8-2.0); ANION GAP 16.8 mmol/L (8-16); CALCIUM 8.6 mg/dL (8.4-10.2); CREATININE, SERUM 2.37 mg/dL (0.57-1.11); POTASSIUM 4.8 mmol/L (3.5-5.1)
[2023-03-02] MEDS: CEFTRIAXONE 2 GM in SODIUM CHLORIDE 0.9% 100 ML IV SCH (16:13)
[2023-03-02] MEDS ORDERED: FUROSEMIDE INJ 10 MG/ML 4 ML VIAL IV ONE (16:15)
[2023-03-02] MEDS ORDERED: BISACODYL 10 MG SUPP PR ONE (18:45)
[2023-03-03] VITALS (7 sets, daily range): BP systolic 95–110; BP diastolic 50–72; PULSE 79–91; RESP 16–17; TEMP 97.5–98; O2SAT 97–100
[2023-03-03] MEDS: ACETAMINOPHEN 325 MG TAB PO PRN ×3 (00:11→22:31)
[2023-03-03 07:46] LABS: BASOPHILS # (AUTO) 0.1 (0.0-0.1); BASOPHILS % 0.6 % (0.0-1.0); EOSINOPHILS % 0.1 % (0.0-6.0); HEMATOCRIT 30.7 % (34.2-44.1); HEMOGLOBIN 10.2 g/dL (12.0-16.0); LYMPHOCYTES # (AUTO) 1.1 (1.0-3.2); LYMPHOCYTES % 7.7 % (18.0-39.1); MEAN CORPUSCULAR HGB CONC 33.2 g/dL (31-35); MEAN CORPUSCULAR VOLUME 93.3 fL (81-99); MONOCYTES # (AUTO) 0.6 (0.2-0.8); NEUTROPHILS # (AUTO) 11.6 (2.1-6.9); NEUTROPHILS % 84.7 % (38.7-80.0); PLATELET COUNT 494 x10e3/uL (140-360); RED BLOOD COUNT 3.29 x10e6/uL (3.6-5.1); RED CELL DISTRIBUTION WIDTH 21.9 % (11.7-14.4)
[2023-03-03 08:00] LABS: INR 3.22; PROTHROMBIN TIME 33.2 seconds (11.9-14.5)
[2023-03-03 08:46] LABS: ANION GAP 19.7 mmol/L (8-16); CALCIUM 8.6 mg/dL (8.4-10.2); CREATININE, SERUM 2.74 mg/dL (0.57-1.11); MAGNESIUM 2.1 MG/DL (1.3-2.1); POTASSIUM 4.7 mmol/L (3.5-5.1)
[2023-03-03] MEDS ORDERED: MINERAL OIL 132 ML BTL PR ONE (09:00)
[2023-03-03] MEDS ORDERED: ALBUMIN 5% 0.05 GM/ML BTL IV ONE ×2 (10:00→17:00)
[2023-03-03] MEDS ORDERED: ALBUMIN 5% 250ML 250 ML IV ONE ×2 (10:45→17:35)
[2023-03-03] MEDS: LACTULOSE SYRUP 20 GM/30 ML UDC PO PRN (10:51)
[2023-03-03] MEDS: SODIUM BICARBONATE 650 MG TAB PO SCH ×2 (10:52→17:48)
[2023-03-03] MEDS: CEFTRIAXONE 2 GM in SODIUM CHLORIDE 0.9% 100 ML IV SCH (14:00)
[2023-03-03] MEDS: HYDROCODONE/APAP 5MG-325MG TAB PO PRN (18:06)
[2023-03-03 22:26] LABS: CLARITY,URINE CLOUDY (CLEAR); COLOR,URINE AMBER (YELLOW)
[2023-03-03 22:27] LABS: KETONES,URINE 1+ (NEGATIVE); LEUKOCYTE ESTERASE ,URINE NEGATIVE (NEGATIVE); NITRITE,URINE NEGATIVE (NEGATIVE); PROTEIN,URINE DIPSTICK 2+ (NEGATIVE); URINE UROBILINOGEN 1 mg/dL (0.2 - 1)
[2023-03-03 22:32] LABS: AMORPHOUS SEDIMENT,URINE MODERATE (FEW); BACTERIA,URINE MANY /HPF; EPITHELIAL CELLS,URINE FEW /LPF; RBC,URINE >50 /HPF (0-5); TRANSITIONAL EPI CELLS,URINE MANY; WBC,URINE (MAN) 21-50 /HPF (0-5)
[2023-03-03 22:35] LABS: CREATININE,URINE RANDOM 115.32 mg/dL (47-110); TOTAL PROTEIN, URINE 87.2 mg/dL (1-14)
[2023-03-03 23:33] LABS: SODIUM,URINE < 20 mmol/L
[2023-03-04] VITALS (8 sets, daily range): BP systolic 102–134; BP diastolic 64–79; PULSE 83–96; RESP 16–20; TEMP 97.2–98.4; O2SAT 97–100
[2023-03-04] MEDS ORDERED: SODIUM CHLORIDE 0.9% 250ML 250 ML ONE (05:49)
[2023-03-04] MEDS ORDERED: DIPHENHYDRAMINE HCL INJ 50 MG/ML VIAL IV ONE (06:30)
[2023-03-04] MEDS: SODIUM BICARBONATE 650 MG TAB PO SCH ×2 (09:00→17:30)
[2023-03-04] MEDS: CEFTRIAXONE 2 GM in SODIUM CHLORIDE 0.9% 100 ML IV SCH (13:03)
[2023-03-04] MEDS: FENTANYL 25 MCG/HR PATCH TOP SCH (13:04)
[2023-03-04] MEDS ORDERED: ALBUMIN 25% 25GM 100ML 0.25 GM/ML BTL IV ONE (16:30)
[2023-03-04] MEDS ORDERED: ALBUMIN 25% 25GM 100ML 100 ML IV ONE (17:00)
[2023-03-04] MEDS: HYDROCODONE/APAP 5MG-325MG TAB PO PRN ×2 (18:02→22:23)
[2023-03-05] VITALS (7 sets, daily range): BP systolic 108–118; BP diastolic 58–81; PULSE 83–108; RESP 15–20; TEMP 97.4–98.5; O2SAT 95–100
[2023-03-05 05:51] LABS: BASOPHILS # (AUTO) 0.1 (0.0-0.1); BASOPHILS % 0.5 % (0.0-1.0); EOSINOPHILS % 0.2 % (0.0-6.0); HEMATOCRIT 27.9 % (34.2-44.1); HEMOGLOBIN 9.3 g/dL (12.0-16.0); LYMPHOCYTES # (AUTO) 1.1 (1.0-3.2); LYMPHOCYTES % 8.1 % (18.0-39.1); MEAN CORPUSCULAR HEMOGLOBIN 31.7 pg (28-32); MEAN CORPUSCULAR HGB CONC 33.3 g/dL (31-35); MEAN CORPUSCULAR VOLUME 95.2 fL (81-99); MONOCYTES # (AUTO) 0.5 (0.2-0.8); MONOCYTES % 3.6 % (4.4-11.3); NEUTROPHILS % 85.5 % (38.7-80.0); PLATELET COUNT 415 x10e3/uL (140-360); RED BLOOD COUNT 2.93 x10e6/uL (3.6-5.1); RED CELL DISTRIBUTION WIDTH 21.5 % (11.7-14.4)
[2023-03-05 06:11] LABS: INR 1.35; PROTHROMBIN TIME 17.2 seconds (11.9-14.5)
[2023-03-05 06:23] LABS: ANION GAP 20.5 mmol/L (8-16); CALCIUM 8.6 mg/dL (8.4-10.2); CREATININE, SERUM 2.81 mg/dL (0.57-1.11); POTASSIUM 4.5 mmol/L (3.5-5.1)
[2023-03-05] MEDS: DEXTROSE 50% SYRINGE 50 ML IV PRN (07:50)
[2023-03-05] MEDS: SODIUM BICARBONATE 650 MG TAB PO SCH ×2 (11:48→16:53)
[2023-03-05] MEDS: HYDROCODONE/APAP 5MG-325MG TAB PO PRN ×3 (11:49→23:03)
[2023-03-05] MEDS ORDERED: PHYTONADIONE 10 MG/ML AMP IV ONE (12:30)
[2023-03-05] MEDS: CEFTRIAXONE 2 GM in SODIUM CHLORIDE 0.9% 100 ML IV SCH (13:32)
[2023-03-05] MEDS ORDERED: ALBUMIN 25% 25GM 100ML 0.25 GM/ML BTL IV SCH (15:30)
[2023-03-05] MEDS ORDERED: FUROSEMIDE INJ 10 MG/ML 4 ML VIAL IV ONE (16:00)
[2023-03-05] MEDS: ALBUMIN 25% 25GM 100ML 100 ML IV SCH (16:50)
[2023-03-05] MEDS: LACTULOSE SYRUP 20 GM/30 ML UDC PO PRN (16:53)
[2023-03-06] VITALS (43 sets, daily range): BP systolic 79–156; BP diastolic 48–99; PULSE 94–148; RESP 10–34; TEMP 97.9–101.4; O2SAT 92–100
[2023-03-06] MEDS: ALBUMIN 25% 25GM 100ML 100 ML IV SCH (00:17)
[2023-03-06] MEDS ORDERED: METOPROLOL TARTRATE INJ 1 MG/ML VIAL IV PRN (05:45)
[2023-03-06 05:54] LABS: BASOPHILS % 0.2 % (0.0-1.0); EOSINOPHILS % 0.1 % (0.0-6.0); HEMATOCRIT 28.5 % (34.2-44.1); HEMOGLOBIN 9.5 g/dL (12.0-16.0); LYMPHOCYTES # (AUTO) 0.4 (1.0-3.2); LYMPHOCYTES % 2.5 % (18.0-39.1); MEAN CORPUSCULAR HEMOGLOBIN 31.7 pg (28-32); MEAN CORPUSCULAR HGB CONC 33.3 g/dL (31-35); MONOCYTES # (AUTO) 0.1 (0.2-0.8); MONOCYTES % 0.8 % (4.4-11.3); NEUTROPHILS # (AUTO) 15.7 (2.1-6.9); NEUTROPHILS % 94.7 % (38.7-80.0); PLATELET COUNT 397 x10e3/uL (140-360); RED CELL DISTRIBUTION WIDTH 21.8 % (11.7-14.4)
[2023-03-06] MEDS: HYDROCODONE/APAP 5MG-325MG TAB PO PRN (06:05)
[2023-03-06 06:27] LABS: CREATININE, SERUM 3.06 mg/dL (0.57-1.11); MAGNESIUM 2.2 MG/DL (1.3-2.1)
[2023-03-06 06:57] LABS: ALBUMIN 2.6 g/dL (3.5-5.0)
[2023-03-06 06:59] LABS: ALBUMIN/GLOBULIN RATIO 0.6 (0.8-2.0)
[2023-03-06 07:51] LABS: INR 1.13
[2023-03-06] MEDS ORDERED: LIDOCAINE HCL 1% LOCAL INJ 20 ML VIAL ONE (08:10)
[2023-03-06] MEDS ORDERED: SODIUM CHLORIDE 0.9% 250ML 250 ML ONE ×2 (08:11→08:12)
[2023-03-06] MEDS ORDERED: IOPAMIDOL 370 MG/ML 100 ML INFUS..BTL INJ ONE ×2 (08:11→08:13)
[2023-03-06] MEDS: SODIUM BICARBONATE 650 MG TAB PO SCH ×2 (09:00→16:10)
[2023-03-06] MEDS ORDERED: KETAMINE 50MG/5ML SYR ONE (12:44)
[2023-03-06] MEDS ORDERED: MIDAZOLAM HCL 2 MG/2 ML VIAL ONE (12:56)
[2023-03-06] MEDS ORDERED: FENTANYL CITRATE/PF 100MCG/2 ML INJ ONE ×2 (12:56→13:38)
[2023-03-06] MEDS ORDERED: PROPOFOL IV EMULSION 10 MG/ML 20 ML VIAL ONE (13:17)
[2023-03-06] MEDS ORDERED: POVIDONE IODINE 0.05% 0.05 % ML PO ONE (13:17)
[2023-03-06] MEDS ORDERED: LIDOCAINE HCL 2% LOCAL INJ 5 ML SDV VIAL INJ ONE (13:17)
[2023-03-06] MEDS ORDERED: FENTANYL CITRATE/PF 100MCG/2 ML INJ IV ONE (13:38)
[2023-03-06] MEDS: LACTATED RINGER'S 1,000 ML INJ SCH (15:40)
[2023-03-06] MEDS: CEFTRIAXONE 2 GM in SODIUM CHLORIDE 0.9% 100 ML IV SCH (15:40)
[2023-03-06] MEDS: HYDROMORPHONE 1MG/1ML INJ IV PRN ×2 (17:39→21:56)
[2023-03-06 18:09] LABS: HEMATOCRIT 26.6 % (34.2-44.1); HEMOGLOBIN 8.6 g/dL (12.0-16.0)
[2023-03-06] MEDS ORDERED: ALBUMIN 25% 25GM 100ML 0.25 GM/ML BTL IV ONE (19:45)
[2023-03-06] MEDS ORDERED: VASOPRESSIN 60 UNIT in DEXTROSE 5% 50ML 50 ML IV SCH (19:45)
[2023-03-06] MEDS: ONDANSETRON HCL INJ 2MG/ML 2ML 2 MG/ML VIAL IV PRN (21:54)
[2023-03-06 22:23] LABS: HEMATOCRIT 21.9 % (34.2-44.1)
[2023-03-06 22:24] LABS: HEMOGLOBIN 7.2 g/dL (12.0-16.0)
[2023-03-07] VITALS (47 sets, daily range): BP systolic 80–113; BP diastolic 45–76; PULSE 74–97; RESP 8–20; TEMP 98–99.6; O2SAT 92–100
[2023-03-07 02:29] LABS: HEMATOCRIT 22.2 % (34.2-44.1); HEMOGLOBIN 7.1 g/dL (12.0-16.0)
[2023-03-07] MEDS: DEXTROSE 50% SYRINGE 50 ML IV PRN (02:43)
[2023-03-07] MEDS: LACTATED RINGER'S 1,000 ML INJ SCH ×2 (02:50→16:39)
[2023-03-07 05:59] LABS: BASOPHILS % 0.1 % (0.0-1.0); EOSINOPHILS % 0.1 % (0.0-6.0); HEMOGLOBIN 7.2 g/dL (12.0-16.0); LYMPHOCYTES # (AUTO) 0.9 (1.0-3.2); LYMPHOCYTES % 3.5 % (18.0-39.1); MEAN CORPUSCULAR HEMOGLOBIN 31.4 pg (28-32); MEAN CORPUSCULAR HGB CONC 32.3 g/dL (31-35); MEAN CORPUSCULAR VOLUME 97.4 fL (81-99); MONOCYTES # (AUTO) 0.7 (0.2-0.8); MONOCYTES % 2.5 % (4.4-11.3); NEUTROPHILS % 89.9 % (38.7-80.0); PLATELET COUNT 296 x10e3/uL (140-360); RED BLOOD COUNT 2.29 x10e6/uL (3.6-5.1); RED CELL DISTRIBUTION WIDTH 22.5 % (11.7-14.4)
[2023-03-07 06:02] LABS: HEMATOCRIT 22.3 % (34.2-44.1)
[2023-03-07 06:22] LABS: ALBUMIN 2.9 g/dL (3.5-5.0); ALBUMIN/GLOBULIN RATIO 0.9 (0.8-2.0); ANION GAP 22.7 mmol/L (8-16); CALCIUM 8.5 mg/dL (8.4-10.2); CREATININE, SERUM 3.41 mg/dL (0.57-1.11); POTASSIUM 4.7 mmol/L (3.5-5.1)
[2023-03-07 08:20] LABS: BAND NEUTROPHILS % (MANUAL) 2 %; LYMPHOCYTES % (MANUAL) 7 % (19-48); MONOCYTES % (MANUAL) 3 % (3.4-9.0); MYELOCYTES % (MANUAL) 1 % (0-0); NEUTROPHILS % (MANUAL) 87 % (40-74); NUCLEATED RED BLOOD CELLS 1
[2023-03-07 08:21] LABS: PLATELET ESTIMATE ADEQUATE; PLATELET MORPHOLOGY COMMENT NORMAL; RBC MORPHOLOGY COMMENT NORMAL
[2023-03-07] MEDS: SODIUM BICARBONATE 650 MG TAB PO SCH ×2 (08:26→16:23)
[2023-03-07] MEDS: HYDROMORPHONE 1MG/1ML INJ IV PRN (16:39)
[2023-03-07] MEDS ORDERED: SODIUM BICARBONATE 8.4% 150 ML in DEXTROSE 5% 1,000 ML IV ONE (18:00)
[2023-03-07] MEDS ORDERED: VASOPRESSIN 60 UNIT in DEXTROSE 5% 50ML 57 ML IV SCH (19:15)
[2023-03-07] MEDS ORDERED: LORAZEPAM INJ 2 MG/ML VIAL IV SCH (21:00)
[2023-03-08] MEDS ORDERED: SODIUM BICARBONATE 8.4% 150 ML in DEXTROSE 5% 1,000 ML IV SCH (05:30)
== END 2023-03-07 20:23 | disposition hospice, inpatient (51) | DRG 853 ==
LOC: ER 14:43 → ERHOLD 16:55 → ICU 18:00 → MED/SURG3 02-24 15:51 → ICU 03-06 15:00
PROVIDERS: ADMIT Internal Medicine; ATTEND Internal Medicine
PROC: 30233K1 Transfusion of Nonautologous Frozen Plasma into Peripheral Vein, Percutaneous Approach (ICD-10-PCS; 2023-03-04)
PROC: 02HV33Z Insertion of Infusion Device into Superior Vena Cava, Percutaneous Approach (ICD-10-PCS; principal; 2023-03-06)
PROC: B548ZZA Ultrasonography of Superior Vena Cava, Guidance (ICD-10-PCS; 2023-03-06)
PROC: 0F9 Hepatobiliary System and Pancreas, Drainage (ICD-10-PCS; 2023-03-07)
PROC: BF101ZZ Fluoroscopy of Bile Ducts using Low Osmolar Contrast (ICD-10-PCS; 2023-03-07)
DX: A41.59 Other Gram-negative sepsis (principal); K72.00 Acute and subacute hepatic failure without coma; K83.1 Obstruction of bile duct; N17.0 Acute kidney failure with tubular necrosis; C25.9 Malignant neoplasm of pancreas, unspecified; K83.09 Other cholangitis; E87.1 Hypo-osmolality and hyponatremia; N13.1 Hydronephrosis with ureteral stricture, not elsewhere classified; E87.20 Acidosis, unspecified; D68.4 Acquired coagulation factor deficiency; D68.311 Acquired hemophilia; I97.191 Other postprocedural cardiac functional disturbances following other surgery; C79.89 Secondary malignant neoplasm of other specified sites; R65.20 Severe sepsis without septic shock; Z51.5 Encounter for palliative care; Z66 Do not resuscitate; E80.6 Other disorders of bilirubin metabolism; I10 Essential (primary) hypertension; E86.0 Dehydration; R53.1 Weakness; W19.XXXA Unspecified fall, initial encounter; Y92.89 Other specified places as the place of occurrence of the external cause; R60.0 Localized edema; R59.0 Localized enlarged lymph nodes; E87.6 Hypokalemia; D63.8 Anemia in other chronic diseases classified elsewhere; K59.00 Constipation, unspecified; E86.1 Hypovolemia; K74.60 Unspecified cirrhosis of liver; D72.829 Elevated white blood cell count, unspecified; D63.0 Anemia in neoplastic disease; R53.83 Other fatigue; R53.81 Other malaise; R34 Anuria and oliguria; T80.89XA Other complications following infusion, transfusion and therapeutic injection, initial encounter; Y84.8 Other medical procedures as the cause of abnormal reaction of the patient, or of later complication, without mention of misadventure at the time of the procedure; Y92.238 Other place in hospital as the place of occurrence of the external cause; E88.09 Other disorders of plasma-protein metabolism, not elsewhere classified; R09.02 Hypoxemia; R00.0 Tachycardia, unspecified; Z20.822 Contact with and (suspected) exposure to COVID-19
CPT/HCPCS: 0223U; 36415; 36569; 47533; 70450; 71045; 74176; 74181; 74470; 76705; 76770; 76942; 77002; 80048; 80053; 81001; 82248; 82550; 82570; 82607; 82746; 82948; 83540; 83605; 83690; 83735; 83880; 84156; 84300; 84466; 84484; 85014; 85018; 85025; 85045; 85610; 85730; 86078; 86850; 86870; 86880; 86900; 86905; 87040; 87071; 87086; 87186; 87205; 93005; 93970; 94799; 96360; 99001; 99284; C1769; J0696; J1170; J1200; J1756; J1940; J2001; J2250; J2270; J2405; J2543; J3430; J7030; J7050; J7070; J7799; P9017; P9047; Q9967